=== PATIENT | male | born 1930 | race Caucasian/White ===

== ENCOUNTER 2016-05-01 05:22 | Inpatient (IN) | payer MEDICARE ==
[~2016-05-01] VITALS: Ht 180.3 cm; Wt 75.0 kg
[2016-05-01] MEDS ORDERED: LIDOCAINE 1%, 2ML ONE (06:39)
[2016-05-01] MEDS ORDERED: TRANEXAMIC ACID 100 MG/ML, 10ML ONE ×4 (06:46→06:47)
[2016-05-01] MEDS ORDERED: VANCOMYCIN 1,000 MG ONE (06:46)
[2016-05-01] MEDS ORDERED: ROPIvacaine/PF 0.2%, 20 ML ONE (06:46)
[2016-05-01] MEDS ORDERED: KETOROLAC 60 MG/2 ML ONE (06:46)
[2016-05-01] MEDS ORDERED: SODIUM CHLORIDE 0.9% 50 ML ONE (06:47)
[2016-05-01] MEDS ORDERED: BACITRACIN 50,000 UNIT ONE (06:47)
[2016-05-01] MEDS ORDERED: EPINEPHRINE 1 MG/ML, 1ML ONE (06:47)
[2016-05-01] MEDS ORDERED: VANCOMYCIN PMX 1GM/200ML 200 ML IV STA (07:01)
[2016-05-01] MEDS ORDERED: LACTATED RINGERS 1,000 ML IV SCH (07:05)
[2016-05-01 07:06] VITALS: BP 111/61
[2016-05-01 07:16] LABS: HIV 1&2 ANTIBODY SCREEN Nonreactive (Nonreactive); HIV-1 p24 ANTIGEN Nonreactive (Nonreactive)
[2016-05-01] MEDS ORDERED: DEXMEDETOMIDINE 200 MCG/2 ML ONE (07:16)
[2016-05-01] MEDS ORDERED: SIMV20TA3 PO (07:27)
[2016-05-01] MEDS ORDERED: TAMS0.4C2 PO (07:27)
[2016-05-01] MEDS ORDERED: FENTANYL PF 250 MCG/5ML ONE (07:27)
[2016-05-01] MEDS ORDERED: APIX5TAB PO (07:27)
[2016-05-01] MEDS ORDERED: DOXY100C15 PO (07:27)
[2016-05-01] MEDS ORDERED: LAMO25TA5 PO (07:27)
[2016-05-01] MEDS ORDERED: AMOX1TAB64 PO (07:27)
[2016-05-01] MEDS ORDERED: METH750T2 PO (07:27)
[2016-05-01] MEDS ORDERED: LEVO25TA4 PO (07:27)
[2016-05-01] MEDS ORDERED: LIDOCAINE 1%, 2ML SQ PRN (07:30)
[2016-05-01] MEDS ORDERED: CEFAZOLIN 1,000 MG ONE (07:32)
[2016-05-01] MEDS ORDERED: EPHEDRINE 50 MG/ML, 1ML ONE (07:32)
[2016-05-01] MEDS ORDERED: PROPOFOL 10 MG/ML, 20ML ONE (07:32)
[2016-05-01] MEDS ORDERED: SUCCINYLCHOLINE 20 MG/ML, 10ML ONE (07:32)
[2016-05-01] MEDS ORDERED: PHENYLEPHRINE 10 MG/ML ONE ×2 (07:32)
[2016-05-01] MEDS ORDERED: ONDANSETRON 2MG/ML, 2ML ONE (07:32)
[2016-05-01] MEDS ORDERED: ROCURONIUM 10 MG/ML ONE ×3 (07:32)
[2016-05-01] MEDS ORDERED: ACID1TAB PO (07:39)
[2016-05-01] MEDS ORDERED: CALC-451 PO (07:39)
[2016-05-01] MEDS ORDERED: VITAMIN E PO (07:39)
[2016-05-01] MEDS ORDERED: ASCO500T8 PO (07:39)
[2016-05-01] MEDS ORDERED: THIA100T10 PO (07:39)
[2016-05-01] MEDS ORDERED: MULTIVITAMIN PO (07:39)
[2016-05-01] MEDS ORDERED: KETAMINE 10 MG/ML, 20ML ONE (08:33)
[2016-05-01] MEDS ORDERED: FENTANYL PF 100 MCG/2ML IV PRN (09:00)
[2016-05-01] MEDS ORDERED: OXYcodone 5 MG/5 ML ORAL.SOL UDC PO PRN (09:00)
[2016-05-01] MEDS ORDERED: ACETAMINOPHEN 325 MG TABLET PO PRN (09:00)
[2016-05-01] MEDS ORDERED: morphine SULFATE 10 MG/ML, 1ML IV PRN (09:00)
[2016-05-01] MEDS ORDERED: ONDANSETRON 2MG/ML, 2ML IVPush PRN (09:00)
[2016-05-01] MEDS: TOBRAMYCIN IV ONE (09:30)
[2016-05-01] MEDS ORDERED: HYDROmorphone 1 MG/ML, 1ML IV PRN (11:00)
[2016-05-01] MEDS ORDERED: DIAZEPAM 5 MG TABLET PO PRN (11:00)
[2016-05-01] MEDS ORDERED: DIPHENHYDRAMINE 50 MG CAPSULE PO PRN (11:00)
[2016-05-01] MEDS ORDERED: ACETAMINOPHEN 650 MG/20.3 ML UDC PO PRN (11:00)
[2016-05-01] MEDS ORDERED: ALUMINUM/MAG/SIMETHICONE 30 ML UDC PO PRN (11:00)
[2016-05-01] MEDS ORDERED: BISACODYL 10 MG SUPP PR PRN (11:00)
[2016-05-01] MEDS ORDERED: MAGNESIUM HYDROXIDE 8%, 30ML UDC PO PRN (11:00)
[2016-05-01] MEDS ORDERED: ONDANSETRON 2MG/ML, 2ML IV PRN (11:00)
[2016-05-01] MEDS ORDERED: SENNA/DOCUSATE TABLET PO PRN (11:00)
[2016-05-01] MEDS ORDERED: ONDANSETRON 4 MG TABLET PO PRN (11:00)
[2016-05-01] MEDS ORDERED: OXYcodone 5 MG/5 ML ORAL.SOL UDC ONE (11:49)
[2016-05-01] MEDS: D5%-0.45NACL+KCL 20MEQ 1,000 ML IV SCH ×2 (13:35→22:50)
[2016-05-01] MEDS: SCOPOLAMINE PATCH, 1.5MG PATCH.TD72 TD SCH (13:38)
[2016-05-01 14:32] VITALS: BP 124/71
[2016-05-01] MEDS: TAMSULOSIN 0.4 MG CAP.ER.24H PO SCH (14:51)
[2016-05-01] MEDS: OXYcodone IR 5MG TABLET PO PRN (14:52)
[2016-05-01] MEDS: CEFAZOLIN PMX 1GM/50ML 50 ML IVPB SCH ×2 (16:10→23:54)
[2016-05-01 20:00] VITALS: BP 131/61
[2016-05-01] MEDS: DOCUSATE 100 MG CAPSULE PO SCH (21:00)
[2016-05-01] MEDS: LAMOTRIGINE 25 MG TABLET PO SCH (23:03)
[2016-05-01] MEDS: SIMVASTATIN 20 MG TABLET PO SCH (23:03)
[2016-05-01] MEDS: DOXYCYCLINE 100MG TABLET PO SCH (23:03)
[2016-05-02] VITALS: BP 101/58
[2016-05-02 04:00] VITALS: BP 107/63
[2016-05-02] MEDS ORDERED: DEXAMETHASONE 4 MG/ML, 1ML IVPush SCH (06:00)
[2016-05-02] MEDS: APIXABAN 5 MG TABLET PO SCH ×2 (06:04→20:15)
[2016-05-02] MEDS: D5%-0.45NACL+KCL 20MEQ 1,000 ML IV SCH ×2 (06:04→16:15)
[2016-05-02] MEDS: OXYcodone IR 5MG TABLET PO PRN (06:20)
[2016-05-02 07:11] VITALS: BP 94/48
[2016-05-02] MEDS: DOCUSATE 100 MG CAPSULE PO SCH ×2 (10:22→20:15)
[2016-05-02] MEDS: LAMOTRIGINE 25 MG TABLET PO SCH ×2 (10:22→20:15)
[2016-05-02] MEDS: MULTIVITAMINS/MINERALS TABLET PO SCH (10:22)
[2016-05-02] MEDS: TAMSULOSIN 0.4 MG CAP.ER.24H PO SCH (10:22)
[2016-05-02] MEDS: ASCORBIC ACID 500 MG TABLET PO SCH (10:23)
[2016-05-02] MEDS: THIAMINE 100MG TABLET PO SCH (10:23)
[2016-05-02] MEDS: LEVOTHYROXINE 25 MCG TABLET PO SCH (10:23)
[2016-05-02] MEDS: DOXYCYCLINE 100MG TABLET PO SCH ×2 (10:23→20:15)
[2016-05-02 14:21] VITALS: BP 118/56
[2016-05-02 19:42] VITALS: BP 104/55
[2016-05-02] MEDS: SIMVASTATIN 20 MG TABLET PO SCH (20:15)
[2016-05-03] MEDS: D5%-0.45NACL+KCL 20MEQ 1,000 ML IV SCH ×4 (01:01→19:26)
[2016-05-03 03:07] VITALS: BP 151/69
[2016-05-03 06:54] VITALS: BP 117/62
[2016-05-03] MEDS: DOXYCYCLINE 100MG TABLET PO SCH ×2 (08:38→20:26)
[2016-05-03] MEDS: APIXABAN 5 MG TABLET PO SCH ×2 (08:39→20:27)
[2016-05-03] MEDS: THIAMINE 100MG TABLET PO SCH (08:39)
[2016-05-03] MEDS: TAMSULOSIN 0.4 MG CAP.ER.24H PO SCH (08:39)
[2016-05-03] MEDS: MULTIVITAMINS/MINERALS TABLET PO SCH (08:39)
[2016-05-03] MEDS: LEVOTHYROXINE 25 MCG TABLET PO SCH (08:39)
[2016-05-03] MEDS: ASCORBIC ACID 500 MG TABLET PO SCH (08:40)
[2016-05-03] MEDS: DOCUSATE 100 MG CAPSULE PO SCH ×2 (08:40→20:26)
[2016-05-03] MEDS: LAMOTRIGINE 25 MG TABLET PO SCH ×2 (08:40→20:27)
[2016-05-03 14:15] VITALS: BP 107/65
[2016-05-03 19:37] VITALS: BP 110/61
[2016-05-03] MEDS: SIMVASTATIN 20 MG TABLET PO SCH (20:26)
[2016-05-04 03:11] VITALS: BP 139/70
[2016-05-04 07:30] VITALS: BP 137/71
[2016-05-04] MEDS: D5%-0.45NACL+KCL 20MEQ 1,000 ML IV SCH (08:00)
[2016-05-04] MEDS: DOCUSATE 100 MG CAPSULE PO SCH (09:56)
[2016-05-04] MEDS: TAMSULOSIN 0.4 MG CAP.ER.24H PO SCH (09:56)
[2016-05-04] MEDS: APIXABAN 5 MG TABLET PO SCH (09:56)
[2016-05-04] MEDS: THIAMINE 100MG TABLET PO SCH (09:57)
[2016-05-04] MEDS: LEVOTHYROXINE 25 MCG TABLET PO SCH (09:57)
[2016-05-04] MEDS: MULTIVITAMINS/MINERALS TABLET PO SCH (09:57)
[2016-05-04] MEDS: ASCORBIC ACID 500 MG TABLET PO SCH (09:57)
[2016-05-04] MEDS: DOXYCYCLINE 100MG TABLET PO SCH (09:57)
[2016-05-04] MEDS: LAMOTRIGINE 25 MG TABLET PO SCH (09:57)
[2016-05-04] MEDS: SCOPOLAMINE PATCH, 1.5MG PATCH.TD72 TD SCH (11:19)
[2016-05-04 13:11] VITALS: BP 120/77
== END 2016-05-04 13:50 | DRG 467 ==
LOC: ORIP 05:22 → 4NOR 12:50
PROVIDERS: ADMIT Orthopaedic Surgery; ATTEND Orthopaedic Surgery
PROC: 0SPB08Z Removal of Spacer from Left Hip Joint, Open Approach (ICD-10-PCS; 2016-05-01)
PROC: 01NF0ZZ Release Sciatic Nerve, Open Approach (ICD-10-PCS; 2016-05-01)
PROC: 0T9B70Z Drainage of Bladder with Drainage Device, Via Natural or Artificial Opening (ICD-10-PCS; 2016-05-01)
PROC: 0SRB0JA Replacement of Left Hip Joint with Synthetic Substitute, Uncemented, Open Approach (ICD-10-PCS; principal; 2016-05-01 07:30)
DX: Z47.32 Aftercare following explantation of hip joint prosthesis (principal); D62 Acute posthemorrhagic anemia; Y83.1 Surgical operation with implant of artificial internal device as the cause of abnormal reaction of the patient, or of later complication, without mention of misadventure at the time of the procedure
CPT/HCPCS: 36415; 72170; 81003; 82330; 82803; 82947; 83036; 84132; 84295; 85014; 85018; 85610; 85730; 86703; 86850; 86900; 86923; 87015; 87070; 87075; 87081; 87102; 87116; 87205; 87206; 87899; 89051; C1713; J0171; J0690; J1100; J1885; J2405; J2704; J2795; J3010; J3370; C1776; G0435; J0330; J2370; J3260; J3480; J7120